=== PATIENT | male | born 1970 | race Caucasian/White ===

== ENCOUNTER 2017-04-17 11:12 | Emergency (ER) | payer MEDICAID, OTHER ==
[~2017-04-17] VITALS: Ht 185.4 cm; Wt 70.5 kg
[~2017-04-17 11:12] MED LIST: OLAN15TA2 PO
[2017-04-17 12:57] VITALS: BP 119/81
== END 2017-04-17 12:58 | disposition home or self-care (01) ==
LOC: EMS 11:13
DX: L01.00 Impetigo, unspecified (principal); F17.210 Nicotine dependence, cigarettes, uncomplicated; Z88.5 Allergy status to narcotic agent
CPT/HCPCS: 99283

== ENCOUNTER 2019-06-21 16:41 | Inpatient (IN) | payer MEDICAID, OTHER ==
[~2019-06-21] VITALS: Ht 172.7 cm; Wt 59.6 kg
[2019-06-21 17:07] LABS: BASOPHILS % (AUTO) 0.7 % (0.0-2.0); EOSINOPHILS % (AUTO) 1.6 % (1.0-6.0); HEMOGLOBIN 13.6 g/dL (13.5-17.5); LYMPHOCYTES # (AUTO) 1.1 K/uL (1.0-4.8); LYMPHOCYTES % (AUTO) 30.4 % (22.0-44.0); MEAN CORPUSCULAR HEMOGLOBIN 31.6 pg (26.0-34.0); MEAN CORPUSCULAR HGB CONC 33.2 G/dL (31.0-37.0); MEAN CORPUSCULAR VOLUME 95 fL (80-100); MONOCYTES # (AUTO) 0.1 K/uL (0.1-1.0); MONOCYTES % (AUTO) 3.7 % (2.0-9.0); NEUTROPHILS # (AUTO) 2.3 K/uL (1.8-7.7); NEUTROPHILS % (AUTO) 63.6 % (40.0-70.0); PLATELET COUNT (AUTO) 220 K/uL (150-450); RED BLOOD CELL COUNT(AUTO) 4.31 MIL/uL (4.50-5.90); RED CELL DISTRIBUTION WIDTH 14.4 % (11.5-14.5)
[2019-06-21 17:30] LABS: AMPHET/METH SCREEN,URINE NEGATIVE (NEGATIVE); BARBITURATE SCREEN, URINE NEGATIVE (NEGATIVE); BENZODIAZEPINES SCREEN,URINE NEGATIVE (NEGATIVE); CANNABINOID SCREEN,URINE NEGATIVE (NEGATIVE); COCAINE SCREEN,URINE NEGATIVE (NEGATIVE); METHADONE SCREEN, URINE NEGATIVE (NEGATIVE); OPIATE SCREEN,URINE NEGATIVE (NEGATIVE)
[2019-06-21 17:34] LABS: PHENCYCLIDINE SCREEN,URINE NEGATIVE (NEGATIVE)
[2019-06-21 17:58] LABS: ANION GAP 5 mmol/L (8-16); CALCIUM, TOTAL 10.1 mg/dL (8.8-10.5); CARBON DIOXIDE 33 mmol/L (22-29); CHLORIDE 103 mmol/L (98-107); CREATININE 1.07 mg/dL (0.60-1.30); GLOMERULAR FILTR. RATE CALC > 60 mL/min (>60); GLUCOSE,RANDOM 136 mg/dL (70-110); POTASSIUM 4.4 mmol/L (3.5-5.1); SODIUM SERUM 141 mmol/L (136-145); UREA NITROGEN, BLOOD 14 mg/dL (7-18)
[2019-06-21 18:03] LABS: ALANINE AMINOTRANSFERASE 27 U/L (12-78); ALBUMIN 3.6 g/dL (3.4-5.0); ALKALINE PHOSPHATASE 82 U/L (46-116); ASPARTATE AMINOTRANSFERASE 14 U/L (15-37); BILIRUBIN,TOTAL 0.4 mg/dL (0.1-1.0); TOTAL PROTEIN, SERUM 7.1 g/dL (6.4-8.2)
[2019-06-21] MEDS ORDERED: HALOPERIDOL 5 MG TABLET PO PRN (21:00)
[2019-06-21] MEDS ORDERED: ZOLPIDEM TARTRATE 10 MG TABLET PO PRN (21:00)
[2019-06-22 00:54] VITALS: BP 114/72
[2019-06-22] MEDS ORDERED: INFLUENZA VIRUS VACCINE QVS 2019-20 (3YR+)/PF 60 MCG/0.5 ML SYRINGE IM ONE (03:30)
[2019-06-22 08:09] VITALS: BP 101/60
[2019-06-22 09:47] LABS: CHOL/HDL RATIO 4.4 (4.2-7.3)
[2019-06-22] MEDS: ARIPiprazole 10 MG TABLET PO SCH (11:22)
[2019-06-22] MEDS: LORazepam 2 MG TABLET PO PRN (12:10)
[2019-06-22] MEDS ORDERED: CloNIDine HCL 0.1 MG TABLET PO PRN (12:15)
[2019-06-22] MEDS ORDERED: ACETAMINOPHEN 325 MG TABLET PO PRN (12:15)
[2019-06-22] MEDS ORDERED: GuaiFENesin/D-METHORPHAN [SUGAR-FREE] 200-20MG/10 ML SYRUP UDCUP PO PRN (12:15)
[2019-06-22] MEDS ORDERED: NICOTINE 14 MG/24 HOUR PATCH TD PRN (12:15)
[2019-06-22] MEDS ORDERED: PETROLATUM,WHITE 28 GM JELLY TP PRN (12:15)
[2019-06-22] MEDS ORDERED: MAGNESIUM HYDROXIDE SUSPENSION 30 ML UDCUP PO PRN (12:15)
[2019-06-22] MEDS ORDERED: ONDANSETRON HCL 4 MG TABLET PO PRN (12:15)
[2019-06-22] MEDS ORDERED: ALBUTEROL SULFATE HFA 90 MCG/PUFF 8 GM INHALER IH PRN (12:15)
[2019-06-22] MEDS ORDERED: MAG HYDROX/AL HYDROX/SIMETH ES 30 ML SUSPENSION UDCUP PO PRN (12:15)
[2019-06-22] MEDS ORDERED: LOPERAMIDE HCL 2 MG CAPSULE PO PRN (12:15)
[2019-06-22] MEDS ORDERED: DOCUSATE SODIUM 100 MG CAPSULE PO PRN (12:15)
[2019-06-22 16:05] VITALS: BP 101/60
[2019-06-23 06:33] VITALS: BP 102/71
[2019-06-23] MEDS: IBUPROFEN 400 MG TABLET PO PRN (07:01)
[2019-06-23 08:04] VITALS: BP 103/69
[2019-06-23] MEDS: ARIPiprazole 10 MG TABLET PO SCH (08:20)
[2019-06-23 16:15] VITALS: BP 103/58
[2019-06-23] MEDS: LORazepam 2 MG TABLET PO PRN (17:45)
[2019-06-24 05:40] VITALS: BP 104/51
[2019-06-24 09:04] VITALS: BP 100/60
[2019-06-24] MEDS: IBUPROFEN 400 MG TABLET PO PRN (09:04)
[2019-06-24] MEDS: ARIPiprazole 10 MG TABLET PO SCH (09:04)
[2019-06-24] MEDS: LORazepam 2 MG TABLET PO PRN ×2 (14:42→18:58)
[2019-06-24 16:07] VITALS: BP 101/66
[2019-06-25 06:06] VITALS: BP 109/71
[2019-06-25] MEDS: ARIPiprazole 10 MG TABLET PO SCH (08:30)
[2019-06-25 08:37] VITALS: BP 101/65
[2019-06-25] MEDS ORDERED: ARIP10TA8 PO (11:35)
[2019-06-25] MEDS: LORazepam 2 MG TABLET PO PRN (12:20)
== END 2019-06-25 13:20 | disposition home or self-care (01) | DRG 750 ==
LOC: EMS 17:32 → B3A 21:30 → UNDOADMIN 21:32
DX: F25.1 Schizoaffective disorder, depressive type (principal); I95.9 Hypotension, unspecified; R45.851 Suicidal ideations; F11.20 Opioid dependence, uncomplicated; Z28.21 Immunization not carried out because of patient refusal; Z91.5 Personal history of self-harm; M19.90 Unspecified osteoarthritis, unspecified site; D72.819 Decreased white blood cell count, unspecified; E78.5 Hyperlipidemia, unspecified; F17.200 Nicotine dependence, unspecified, uncomplicated; J45.909 Unspecified asthma, uncomplicated
CPT/HCPCS: G0480

== ENCOUNTER 2019-12-02 07:59 | Emergency (ER) | payer MEDICAID, OTHER ==
[~2019-12-02] VITALS: Ht 185.4 cm; Wt 77.3 kg
[~2019-12-02 07:59] MED LIST changes: +ARIP10TA8 PO; -OLAN15TA2 PO
[2019-12-02] MEDS ORDERED: HYDROCODONE/ACETAMINOPHEN 5-325 MG TABLET PO ONE (08:30)
[2019-12-02] MEDS ORDERED: MORPHINE SULFATE 2 MG/ML SYRINGE IVP ONE (10:15)
[2019-12-02] MEDS ORDERED: CeFAZolin 2 GM/DEXTROSE 50 ML IV ONE (10:15)
[2019-12-02 13:30] VITALS: BP 136/81
== END 2019-12-02 14:10 | disposition short-term general hospital (02) ==
LOC: EMS 08:00
DX: Z03.818 Encounter for observation for suspected exposure to other biological agents ruled out (principal); S02.40FA Zygomatic fracture, left side, initial encounter for closed fracture; S02.32XA Fracture of orbital floor, left side, initial encounter for closed fracture; Z88.5 Allergy status to narcotic agent; W22.8XXA Striking against or struck by other objects, initial encounter; Y93.89 Activity, other specified; Y92.89 Other specified places as the place of occurrence of the external cause; Y99.8 Other external cause status
CPT/HCPCS: 70450; 70486; 87635; 96365; 96375; 99285; J0690; J2270